=== PATIENT | male | born 1970 | race Hispanic/Latino ===

== ENCOUNTER 2021-05-16 11:31 | Inpatient (IN) | payer SELFPAY ==
[~2021-05-16 11:31] MED LIST: Iopamidol-370 76% 500 ML 1 ML ONE
[2021-05-16] MEDS ORDERED: Acetaminophen 500 MG TAB ONE (12:03)
[2021-05-16 12:19] LABS: Hemoglobin 15.2 g/dL (14.0-18.0); Mean Corpuscular HGB CONC 33.4 g/dL (32.0-36.0); Mean Corpuscular Hemoglobin 29.6 pg (27.0-31.0); Mean Corpuscular Volume 88.5 fL (78.0-98.0); Platelet Count 123 thou/uL (130-400); RBC Distribution Width 12.6 % (11.5-14.5); Red Blood Cell (RBC) Count 5.12 mill/uL (4.70-6.10); White Blood Cell (WBC) Count 13.2 thou/uL (4.8-10.8)
[2021-05-16] MEDS ORDERED: cefTRIAXone\\ROCEPHIN 1 GM VIAL ONE (12:43)
[2021-05-16 13:01] LABS: #Lymphocytes 1.3 thou/uL (1.20-3.40); #Monocytes 0.4 thou/uL (0.11-0.59); #Neutrophils 11.4 thou/uL (1.40-6.50); %Basophils 0.3 % (0.0-1.0); %Eosinophils 0.3 % (0.0-10.0); %Lymphocytes 9.9 % (21.0-51.0); %Monocytes 3.2 % (0.0-10.0); %Neutrophils 86.3 % (42.0-75.0); MDiff Complete? YES; Platelet Morphology Comment Appears Decreased; Polychromasia SLIGHT = 2-3 cells (100X) (0-2/hpf)
[2021-05-16] MEDS ORDERED: Azithromycin 500 MG VIAL ONE (13:22)
[2021-05-16 14:00] LABS: SARS-CoV-2 NAA Rapid Test DETECTED (NotDetected)
[2021-05-16] MEDS ORDERED: Dexamethasone 4 mg/ml Vial ONE (15:07)
[2021-05-16 15:38] LABS: ALT (SGPT) 115 U/L (8-55); AST (SGOT) 53 U/L (5-34); Alkaline Phosphatase 114 U/L (40-110); Anion Gap 15 mmol/L (10-20); BUN (Urea Nitrogen) 11 mg/dL (8.9-20.6); Bilirubin, Total 0.6 mg/dL (0.2-1.2); Calc. Creatinine Clearance 0 mL/min (70-130); Calcium 7.8 mg/dL (7.8-10.44); Carbon Dioxide 20 mmol/L (22-29); Chloride 105 mmol/L (98-107); Globulin 3.4 g/dL (2.4-3.5); Glucose 116 mg/dL (70-105); Potassium 3.6 mmol/L (3.5-5.1); Protein, Total 6.4 g/dL (6.0-8.3); Sodium 136 mmol/L (136-145)
[2021-05-16 15:42] LABS: Troponin I 0.033 ng/mL (< 0.028)
[2021-05-16] MEDS ORDERED: Ondansetron ODT 4 MG TAB PO PRN (15:53)
[2021-05-16] MEDS ORDERED: Ondansetron PF 4 MG/2 ML Vial IVP PRN (15:53)
[2021-05-16] MEDS ORDERED: Acetaminophen 325 MG TAB PO PRN (15:53)
[2021-05-16] MEDS ORDERED: Ivermectin 3 MG TAB PO SCH (16:00)
[2021-05-16] MEDS ORDERED: Enoxaparin Sodium 40 MG/0.4 ML SYRINGE SC SCH (16:00)
[2021-05-16] MEDS ORDERED: Pantoprazole 40 MG VIAL IVP SCH (16:00)
[2021-05-16] MEDS ORDERED: Bacteriostatic Water 30 ML VIAL FS PRN (16:45)
[2021-05-16] MEDS ORDERED: Enoxaparin Sodium 40 MG/0.4 ML SYRINGE ONE (18:16)
[2021-05-16] MEDS ORDERED: Pantoprazole 40 MG VIAL ONE (18:17)
[2021-05-16 18:27] LABS: Troponin I 0.038 ng/mL (< 0.028)
[2021-05-16] MEDS ORDERED: methylPREDNISolone Sod Succ 40 MG VIAL IVP SCH (21:00)
[2021-05-16] MEDS: Melatonin 3 MG TAB PO SCH (21:11)
[2021-05-16] MEDS: Colchicine 0.6 MG TAB PO SCH (21:11)
[2021-05-16] MEDS: methylPREDNISolone Sod Succ 40 MG VIAL IVP SCH (21:11)
[2021-05-17 06:31] LABS: Hemoglobin 14.2 g/dL (14.0-18.0); Mean Corpuscular HGB CONC 32.9 g/dL (32.0-36.0); Mean Corpuscular Hemoglobin 29.4 pg (27.0-31.0); Mean Corpuscular Volume 89.6 fL (78.0-98.0); Mean Platelet Volume 8.6 fL (7.4-10.4); Platelet Count 262 thou/uL (130-400); RBC Distribution Width 12.5 % (11.5-14.5); Red Blood Cell (RBC) Count 4.83 mill/uL (4.70-6.10); White Blood Cell (WBC) Count 16.9 thou/uL (4.8-10.8)
[2021-05-17 06:44] LABS: ALT (SGPT) 91 U/L (8-55); AST (SGOT) 33 U/L (5-34); Albumin 3.2 g/dL (3.5-5.0); Alkaline Phosphatase 116 U/L (40-110); Anion Gap 13 mmol/L (10-20); BUN (Urea Nitrogen) 13 mg/dL (8.9-20.6); Bilirubin, Total 0.5 mg/dL (0.2-1.2); Calc. Creatinine Clearance 130 mL/min (70-130); Calcium 8.5 mg/dL (7.8-10.44); Carbon Dioxide 26 mmol/L (22-29); Chloride 103 mmol/L (98-107); Globulin 3.7 g/dL (2.4-3.5); Glucose 171 mg/dL (70-105); Potassium 4.1 mmol/L (3.5-5.1); Protein, Total 6.9 g/dL (6.0-8.3); Sodium 138 mmol/L (136-145)
[2021-05-17 06:45] LABS: #Lymphocytes 0.9 thou/uL (1.20-3.40); #Monocytes 0.4 thou/uL (0.11-0.59); #Neutrophils 15.5 thou/uL (1.40-6.50); %Basophils 0.1 % (0.0-1.0); %Eosinophils 0.1 % (0.0-10.0); %Lymphocytes 5.1 % (21.0-51.0); %Monocytes 2.6 % (0.0-10.0); %Neutrophils 92.1 % (42.0-75.0); Platelet Morphology Comment Appears Adequate; RBC Morphology Normal
[2021-05-17 07:03] LABS: Hep B Surf Ag Non-Reactive S/CO (NonReactive); Hep C IgG Ab Non-Reactive (NonReactive); Hep C Index 0.08 S/CO (0-0.79)
[2021-05-17] MEDS: Ascorbic Acid 500 mg Chewable Tablet PO SCH (07:51)
[2021-05-17] MEDS: Ivermectin 3 MG TAB PO SCH (07:51)
[2021-05-17] MEDS: Cholecalciferol 1,000 UNITS (25 MCG) TAB PO SCH (07:52)
[2021-05-17] MEDS: Zinc Sulfate 220 MG CAP PO SCH (07:53)
[2021-05-17] MEDS: Colchicine 0.6 MG TAB PO SCH ×2 (07:53→21:21)
[2021-05-17] MEDS: methylPREDNISolone Sod Succ 40 MG VIAL IVP SCH (07:54)
[2021-05-17] MEDS ORDERED: Enoxaparin Sodium 40 MG/0.4 ML SYRINGE SC SCH (09:00)
[2021-05-17] MEDS ORDERED: REMDESIVIR 200 MG in Sodium Chloride 0.9% 250 ML 210 ML IV SCH (09:30)
[2021-05-17] MEDS: Dexamethasone 10 MG in Sodium Chloride 0.9% 50 ML IVPB SCH ×2 (10:44→21:22)
[2021-05-17] MEDS: Famotidine/PF 20 mg/2ml Vial SLOW IVP SCH ×2 (10:45→21:21)
[2021-05-17 13:40] LABS: Hep A IgM AB Non-Reactive (NonReactive)
[2021-05-17 13:41] LABS: Hepatitis B Core IgM Abs Non-Reactive (NonReactive)
[2021-05-17 13:43] LABS: HBCM Index 0.07 S/CO (0-0.79); Hep A IgM S/CO 0.33 S/CO (0-0.79)
[2021-05-17] MEDS: cefTRIAXone\\ROCEPHIN 1 GM in Sodium Chloride 0.9% 100 ML IVPB SCH (13:47)
[2021-05-17] MEDS: Azithromycin 500 MG in Sodium Chloride 0.9% 250 ML 250 ML IVPB SCH (15:11)
[2021-05-17] MEDS: Enoxaparin Sodium 40 MG/0.4 ML SYRINGE SC SCH (21:21)
[2021-05-17] MEDS: Melatonin 3 MG TAB PO SCH (21:22)
[2021-05-17] MEDS: Mometasone 200 MCG/Formoterol 5 MCG 120 PUFF INHALER INH SCH (21:22)
[2021-05-18 06:59] LABS: #Lymphocytes 0.8 thou/uL (1.20-3.40); #Monocytes 0.4 thou/uL (0.11-0.59); %Eosinophils 0.1 % (0.0-10.0); %Lymphocytes 5.1 % (21.0-51.0); %Monocytes 2.7 % (0.0-10.0); %Neutrophils 92.1 % (42.0-75.0); Hemoglobin 13.8 g/dL (14.0-18.0); Mean Corpuscular Hemoglobin 28.9 pg (27.0-31.0); Mean Corpuscular Volume 90.3 fL (78.0-98.0); Mean Platelet Volume 8.8 fL (7.4-10.4); Platelet Count 308 thou/uL (130-400); RBC Distribution Width 12.4 % (11.5-14.5); Red Blood Cell (RBC) Count 4.75 mill/uL (4.70-6.10); White Blood Cell (WBC) Count 15.2 thou/uL (4.8-10.8)
[2021-05-18] MEDS: Ascorbic Acid 500 mg Chewable Tablet PO SCH (08:53)
[2021-05-18] MEDS: Enoxaparin Sodium 40 MG/0.4 ML SYRINGE SC SCH ×2 (08:53→20:20)
[2021-05-18] MEDS: Ivermectin 3 MG TAB PO SCH (08:53)
[2021-05-18] MEDS: Famotidine/PF 20 mg/2ml Vial SLOW IVP SCH ×2 (08:53→20:20)
[2021-05-18] MEDS: Dexamethasone 10 MG in Sodium Chloride 0.9% 50 ML IVPB SCH ×2 (08:53→20:19)
[2021-05-18] MEDS: Zinc Sulfate 220 MG CAP PO SCH (08:53)
[2021-05-18] MEDS: Cholecalciferol 1,000 UNITS (25 MCG) TAB PO SCH (08:54)
[2021-05-18] MEDS: Mometasone 200 MCG/Formoterol 5 MCG 120 PUFF INHALER INH SCH ×2 (08:54→18:42)
[2021-05-18] MEDS: Colchicine 0.6 MG TAB PO SCH ×2 (08:54→20:20)
[2021-05-18] MEDS: REMDESIVIR 100 MG in Sodium Chloride 0.9% 250 ML 230 ML IV SCH (12:30)
[2021-05-18] MEDS: cefTRIAXone\\ROCEPHIN 1 GM in Sodium Chloride 0.9% 100 ML IVPB SCH (13:15)
[2021-05-18] MEDS: Azithromycin 500 MG in Sodium Chloride 0.9% 250 ML 250 ML IVPB SCH (15:34)
[2021-05-18] MEDS: Melatonin 3 MG TAB PO SCH (20:19)
[2021-05-18] MEDS: Benzonatate 100 MG CAP PO PRN (20:20)
[2021-05-19 05:16] LABS: #Lymphocytes 0.9 thou/uL (1.20-3.40); #Monocytes 0.6 thou/uL (0.11-0.59); #Neutrophils 14.6 thou/uL (1.40-6.50); %Eosinophils 0.1 % (0.0-10.0); %Lymphocytes 5.5 % (21.0-51.0); %Monocytes 3.8 % (0.0-10.0); %Neutrophils 90.6 % (42.0-75.0); Hemoglobin 14.4 g/dL (14.0-18.0); Mean Corpuscular HGB CONC 32.5 g/dL (32.0-36.0); Mean Corpuscular Hemoglobin 29.1 pg (27.0-31.0); Mean Corpuscular Volume 89.4 fL (78.0-98.0); Mean Platelet Volume 8.3 fL (7.4-10.4); Platelet Count 339 thou/uL (130-400); RBC Distribution Width 12.5 % (11.5-14.5); RBC Morphology Normal; Red Blood Cell (RBC) Count 4.97 mill/uL (4.70-6.10); White Blood Cell (WBC) Count 16.1 thou/uL (4.8-10.8)
[2021-05-19] MEDS: Enoxaparin Sodium 40 MG/0.4 ML SYRINGE SC SCH ×2 (09:23→21:16)
[2021-05-19] MEDS: Colchicine 0.6 MG TAB PO SCH ×2 (09:24→21:18)
[2021-05-19] MEDS: Cholecalciferol 1,000 UNITS (25 MCG) TAB PO SCH (09:24)
[2021-05-19] MEDS: Ascorbic Acid 500 mg Chewable Tablet PO SCH (09:24)
[2021-05-19] MEDS: Ivermectin 3 MG TAB PO SCH (09:24)
[2021-05-19] MEDS: Zinc Sulfate 220 MG CAP PO SCH (09:24)
[2021-05-19] MEDS: Dexamethasone 10 MG in Sodium Chloride 0.9% 50 ML IVPB SCH ×2 (09:25→21:18)
[2021-05-19] MEDS: Famotidine/PF 20 mg/2ml Vial SLOW IVP SCH (09:25)
[2021-05-19] MEDS: REMDESIVIR 100 MG in Sodium Chloride 0.9% 250 ML 230 ML IV SCH (12:18)
[2021-05-19] MEDS: cefTRIAXone\\ROCEPHIN 1 GM in Sodium Chloride 0.9% 100 ML IVPB SCH (13:42)
[2021-05-19] MEDS: Mometasone 200 MCG/Formoterol 5 MCG 120 PUFF INHALER INH SCH ×2 (13:43→18:12)
[2021-05-19] MEDS: Benzonatate 100 MG CAP PO PRN ×2 (18:12→21:16)
[2021-05-19] MEDS: Melatonin 3 MG TAB PO SCH (21:17)
[2021-05-20 04:06] LABS: #Lymphocytes 0.9 thou/uL (1.20-3.40); #Monocytes 0.5 thou/uL (0.11-0.59); #Neutrophils 12.9 thou/uL (1.40-6.50); %Basophils 0.1 % (0.0-1.0); %Eosinophils 0.1 % (0.0-10.0); %Lymphocytes 6.4 % (21.0-51.0); %Monocytes 3.3 % (0.0-10.0); Hemoglobin 14.9 g/dL (14.0-18.0); Mean Corpuscular HGB CONC 32.3 g/dL (32.0-36.0); Mean Corpuscular Hemoglobin 28.7 pg (27.0-31.0); Mean Corpuscular Volume 88.8 fL (78.0-98.0); Mean Platelet Volume 8.1 fL (7.4-10.4); Platelet Count 365 thou/uL (130-400); RBC Distribution Width 12.5 % (11.5-14.5); Red Blood Cell (RBC) Count 5.18 mill/uL (4.70-6.10); White Blood Cell (WBC) Count 14.4 thou/uL (4.8-10.8)
[2021-05-20] MEDS: Ascorbic Acid 500 mg Chewable Tablet PO SCH (08:45)
[2021-05-20] MEDS: Colchicine 0.6 MG TAB PO SCH ×2 (08:45→21:35)
[2021-05-20] MEDS: Dexamethasone 10 MG in Sodium Chloride 0.9% 50 ML IVPB SCH ×2 (08:45→21:33)
[2021-05-20] MEDS: Enoxaparin Sodium 40 MG/0.4 ML SYRINGE SC SCH ×2 (08:45→21:35)
[2021-05-20] MEDS: Zinc Sulfate 220 MG CAP PO SCH (08:46)
[2021-05-20] MEDS: Cholecalciferol 1,000 UNITS (25 MCG) TAB PO SCH (08:46)
[2021-05-20] MEDS: Mometasone 200 MCG/Formoterol 5 MCG 120 PUFF INHALER INH SCH ×2 (08:46→18:13)
[2021-05-20] MEDS: Benzonatate 100 MG CAP PO PRN (10:53)
[2021-05-20] MEDS: REMDESIVIR 100 MG in Sodium Chloride 0.9% 250 ML 230 ML IV SCH (12:35)
[2021-05-20] MEDS: cefTRIAXone\\ROCEPHIN 1 GM in Sodium Chloride 0.9% 100 ML IVPB SCH (14:03)
[2021-05-20] MEDS: Melatonin 3 MG TAB PO SCH (21:35)
[2021-05-21] MEDS: Benzonatate 100 MG CAP PO PRN ×2 (01:13→20:31)
[2021-05-21 03:39] LABS: #Lymphocytes 1.1 thou/uL (1.20-3.40); #Monocytes 0.4 thou/uL (0.11-0.59); #Neutrophils 15.9 thou/uL (1.40-6.50); %Basophils 0.3 % (0.0-1.0); %Eosinophils 0.2 % (0.0-10.0); %Lymphocytes 6.3 % (21.0-51.0); %Monocytes 2.3 % (0.0-10.0); Hemoglobin 16.9 g/dL (14.0-18.0); Mean Corpuscular HGB CONC 34.4 g/dL (32.0-36.0); Mean Corpuscular Hemoglobin 30.4 pg (27.0-31.0); Mean Corpuscular Volume 88.4 fL (78.0-98.0); Platelet Count 439 thou/uL (130-400); RBC Distribution Width 12.5 % (11.5-14.5); Red Blood Cell (RBC) Count 5.57 mill/uL (4.70-6.10); White Blood Cell (WBC) Count 17.5 thou/uL (4.8-10.8)
[2021-05-21 04:05] LABS: Anion Gap 14 mmol/L (10-20); BUN (Urea Nitrogen) 21 mg/dL (8.9-20.6); Calc. Creatinine Clearance 115 mL/min (70-130); Calcium 8.4 mg/dL (7.8-10.44); Carbon Dioxide 21 mmol/L (22-29); Chloride 102 mmol/L (98-107); Glucose 198 mg/dL (70-105); Potassium 4.5 mmol/L (3.5-5.1); Sodium 132 mmol/L (136-145)
[2021-05-21] MEDS: Mometasone 200 MCG/Formoterol 5 MCG 120 PUFF INHALER INH SCH ×2 (06:32→18:12)
[2021-05-21] MEDS: Enoxaparin Sodium 40 MG/0.4 ML SYRINGE SC SCH ×2 (09:21→20:30)
[2021-05-21] MEDS: Dexamethasone 10 MG in Sodium Chloride 0.9% 50 ML IVPB SCH ×2 (09:22→20:29)
[2021-05-21] MEDS: Colchicine 0.6 MG TAB PO SCH ×2 (09:23→20:28)
[2021-05-21] MEDS: Ascorbic Acid 500 mg Chewable Tablet PO SCH (09:23)
[2021-05-21] MEDS: Zinc Sulfate 220 MG CAP PO SCH (09:23)
[2021-05-21] MEDS: Cholecalciferol 1,000 UNITS (25 MCG) TAB PO SCH (09:23)
[2021-05-21] MEDS ORDERED: Dextrose 5% in Water 1,000 ML IV PRN (09:57)
[2021-05-21] MEDS ORDERED: Dextrose 50% Abboject 50 ML SYRINGE SLOW IVP PRN (09:57)
[2021-05-21] MEDS: REMDESIVIR 100 MG in Sodium Chloride 0.9% 250 ML 230 ML IV SCH (13:22)
[2021-05-21] MEDS: cefTRIAXone\\ROCEPHIN 1 GM in Sodium Chloride 0.9% 100 ML IVPB SCH (14:13)
[2021-05-21] MEDS: Melatonin 3 MG TAB PO SCH (20:28)
[2021-05-22 04:50] LABS: D-Dimer Test 1.33 *mcg/mL (0.27-0.43)
[2021-05-22] MEDS: Mometasone 200 MCG/Formoterol 5 MCG 120 PUFF INHALER INH SCH ×2 (06:31→21:32)
[2021-05-22] MEDS: Ascorbic Acid 500 mg Chewable Tablet PO SCH (07:19)
[2021-05-22] MEDS: Cholecalciferol 1,000 UNITS (25 MCG) TAB PO SCH (07:19)
[2021-05-22] MEDS: Enoxaparin Sodium 40 MG/0.4 ML SYRINGE SC SCH ×2 (07:20→21:32)
[2021-05-22] MEDS: Colchicine 0.6 MG TAB PO SCH ×2 (07:20→21:32)
[2021-05-22] MEDS: Zinc Sulfate 220 MG CAP PO SCH (07:20)
[2021-05-22] MEDS: Dexamethasone 10 MG in Sodium Chloride 0.9% 50 ML IVPB SCH ×2 (07:26→21:33)
[2021-05-22] MEDS: cefTRIAXone\\ROCEPHIN 1 GM in Sodium Chloride 0.9% 100 ML IVPB SCH (14:51)
[2021-05-22] MEDS: Benzonatate 100 MG CAP PO PRN (21:33)
[2021-05-22] MEDS: Melatonin 3 MG TAB PO SCH (21:33)
[2021-05-23 08:17] LABS: Anion Gap 15 mmol/L (10-20); BUN (Urea Nitrogen) 27 mg/dL (8.9-20.6); Calc. Creatinine Clearance 110 mL/min (70-130); Calcium 8.4 mg/dL (7.8-10.44); Carbon Dioxide 19 mmol/L (22-29); Chloride 104 mmol/L (98-107); Glucose 171 mg/dL (70-105); Potassium 4.4 mmol/L (3.5-5.1); Sodium 134 mmol/L (136-145)
[2021-05-23] MEDS: Ascorbic Acid 500 mg Chewable Tablet PO SCH (09:25)
[2021-05-23] MEDS: Cholecalciferol 1,000 UNITS (25 MCG) TAB PO SCH (09:25)
[2021-05-23] MEDS: Colchicine 0.6 MG TAB PO SCH ×2 (09:25→20:39)
[2021-05-23] MEDS: Zinc Sulfate 220 MG CAP PO SCH (09:25)
[2021-05-23] MEDS: Dexamethasone 10 MG in Sodium Chloride 0.9% 50 ML IVPB SCH ×2 (09:26→20:40)
[2021-05-23] MEDS: Enoxaparin Sodium 40 MG/0.4 ML SYRINGE SC SCH ×2 (09:26→20:39)
[2021-05-23] MEDS: Mometasone 200 MCG/Formoterol 5 MCG 120 PUFF INHALER INH SCH ×2 (10:58→19:55)
[2021-05-23] MEDS: cefTRIAXone\\ROCEPHIN 1 GM in Sodium Chloride 0.9% 100 ML IVPB SCH (14:15)
[2021-05-23] MEDS: Melatonin 3 MG TAB PO SCH (20:39)
[2021-05-23] MEDS: Benzonatate 100 MG CAP PO PRN (20:39)
[2021-05-23] MEDS: Guaifenesin DM 100-10/5 ML UDCUP PO PRN (23:15)
[2021-05-24] MEDS: HumaLOG 300 UNITS/3 ML VIAL SC PRN (05:09)
[2021-05-24] MEDS: Cholecalciferol 1,000 UNITS (25 MCG) TAB PO SCH (09:18)
[2021-05-24] MEDS: Enoxaparin Sodium 40 MG/0.4 ML SYRINGE SC SCH ×2 (09:19→21:42)
[2021-05-24] MEDS: Ascorbic Acid 500 mg Chewable Tablet PO SCH (09:19)
[2021-05-24] MEDS: Zinc Sulfate 220 MG CAP PO SCH (09:19)
[2021-05-24] MEDS: Dexamethasone 10 MG in Sodium Chloride 0.9% 50 ML IVPB SCH ×2 (09:19→21:42)
[2021-05-24] MEDS: Colchicine 0.6 MG TAB PO SCH ×2 (09:20→21:42)
[2021-05-24] MEDS: cefTRIAXone\\ROCEPHIN 1 GM in Sodium Chloride 0.9% 100 ML IVPB SCH (14:33)
[2021-05-24] MEDS: Mometasone 200 MCG/Formoterol 5 MCG 120 PUFF INHALER INH SCH ×2 (18:00→21:42)
[2021-05-24] MEDS: Benzonatate 100 MG CAP PO PRN (21:42)
[2021-05-24] MEDS: Melatonin 3 MG TAB PO SCH (21:42)
[2021-05-25 04:00] LABS: #Basophils 0.2 thou/uL (0.0-0.2); #Lymphocytes 0.5 thou/uL (1.20-3.40); #Monocytes 0.3 thou/uL (0.11-0.59); #Neutrophils 10.9 thou/uL (1.40-6.50); %Basophils 1.9 % (0.0-1.0); %Eosinophils 0.1 % (0.0-10.0); %Lymphocytes 4.5 % (21.0-51.0); %Monocytes 2.6 % (0.0-10.0); %Neutrophils 90.8 % (42.0-75.0); Hemoglobin 17.2 g/dL (14.0-18.0); Mean Corpuscular HGB CONC 32.5 g/dL (32.0-36.0); Mean Corpuscular Hemoglobin 28.9 pg (27.0-31.0); Mean Corpuscular Volume 88.9 fL (78.0-98.0); Mean Platelet Volume 8.4 fL (7.4-10.4); Platelet Count 300 thou/uL (130-400); RBC Distribution Width 13.4 % (11.5-14.5); Red Blood Cell (RBC) Count 5.94 mill/uL (4.70-6.10)
[2021-05-25 04:26] LABS: ALT (SGPT) 168 U/L (8-55); AST (SGOT) 34 U/L (5-34); Albumin 3.4 g/dL (3.5-5.0); Alkaline Phosphatase 84 U/L (40-110); Anion Gap 13 mmol/L (10-20); BUN (Urea Nitrogen) 22 mg/dL (8.9-20.6); Bilirubin, Total 1.3 mg/dL (0.2-1.2); CRP (Inflammatory) Less than 0.50 mg/dL (= or < 0.5); Calc. Creatinine Clearance 121 mL/min (70-130); Calcium 8.4 mg/dL (7.8-10.44); Carbon Dioxide 20 mmol/L (22-29); Chloride 103 mmol/L (98-107); Globulin 2.7 g/dL (2.4-3.5); Glucose 160 mg/dL (70-105); Potassium 4.6 mmol/L (3.5-5.1); Protein, Total 6.1 g/dL (6.0-8.3); Sodium 131 mmol/L (136-145)
[2021-05-25] MEDS: HumaLOG 300 UNITS/3 ML VIAL SC PRN (05:23)
[2021-05-25] MEDS: Ascorbic Acid 500 mg Chewable Tablet PO SCH (09:07)
[2021-05-25] MEDS: Zinc Sulfate 220 MG CAP PO SCH (09:07)
[2021-05-25] MEDS: Colchicine 0.6 MG TAB PO SCH ×3 (09:08→21:44)
[2021-05-25] MEDS: Cholecalciferol 1,000 UNITS (25 MCG) TAB PO SCH (09:08)
[2021-05-25] MEDS: Enoxaparin Sodium 40 MG/0.4 ML SYRINGE SC SCH ×2 (09:08→21:45)
[2021-05-25] MEDS: Dexamethasone 10 MG in Sodium Chloride 0.9% 50 ML IVPB SCH ×2 (09:09→21:45)
[2021-05-25] MEDS: Mometasone 200 MCG/Formoterol 5 MCG 120 PUFF INHALER INH SCH ×2 (09:10→21:46)
[2021-05-25 12:19] LABS: Hemoglobin A1c 7.3 % (4.0-6.0)
[2021-05-25] MEDS: Melatonin 3 MG TAB PO SCH (21:45)
[2021-05-26] MEDS: HumaLOG 300 UNITS/3 ML VIAL SC PRN ×2 (05:37→11:45)
[2021-05-26] MEDS: Mometasone 200 MCG/Formoterol 5 MCG 120 PUFF INHALER INH SCH ×2 (06:44→17:50)
[2021-05-26] MEDS: Dexamethasone 10 MG in Sodium Chloride 0.9% 50 ML IVPB SCH ×2 (09:30→20:36)
[2021-05-26] MEDS: Zinc Sulfate 220 MG CAP PO SCH (09:30)
[2021-05-26] MEDS: Enoxaparin Sodium 40 MG/0.4 ML SYRINGE SC SCH ×2 (09:30→20:37)
[2021-05-26] MEDS: Ascorbic Acid 500 mg Chewable Tablet PO SCH (09:30)
[2021-05-26] MEDS: Colchicine 0.6 MG TAB PO SCH ×2 (09:30→20:37)
[2021-05-26] MEDS: Cholecalciferol 1,000 UNITS (25 MCG) TAB PO SCH (09:31)
[2021-05-26] MEDS: Melatonin 3 MG TAB PO SCH (20:37)
[2021-05-27] MEDS: HumaLOG 300 UNITS/3 ML VIAL SC PRN ×3 (06:16→16:55)
[2021-05-27] MEDS: Mometasone 200 MCG/Formoterol 5 MCG 120 PUFF INHALER INH SCH ×2 (06:17→18:34)
[2021-05-27] MEDS: Ascorbic Acid 500 mg Chewable Tablet PO SCH (08:20)
[2021-05-27] MEDS: Zinc Sulfate 220 MG CAP PO SCH (08:20)
[2021-05-27] MEDS: Colchicine 0.6 MG TAB PO SCH ×2 (08:20→21:25)
[2021-05-27] MEDS: Dexamethasone 10 MG in Sodium Chloride 0.9% 50 ML IVPB SCH ×2 (08:21→21:24)
[2021-05-27] MEDS: Enoxaparin Sodium 40 MG/0.4 ML SYRINGE SC SCH ×2 (08:21→21:24)
[2021-05-27] MEDS: Cholecalciferol 1,000 UNITS (25 MCG) TAB PO SCH (08:24)
[2021-05-27] MEDS: Guaifenesin DM 100-10/5 ML UDCUP PO PRN (11:38)
[2021-05-27] MEDS: Benzonatate 100 MG CAP PO PRN ×2 (11:38→21:25)
[2021-05-27] MEDS: Melatonin 3 MG TAB PO SCH (21:25)
[2021-05-27] MEDS: Lantus 1000 UNITS/10 ML VIAL SC SCH (21:26)
[2021-05-28] MEDS: Mometasone 200 MCG/Formoterol 5 MCG 120 PUFF INHALER INH SCH ×2 (06:30→21:23)
[2021-05-28] MEDS: Enoxaparin Sodium 40 MG/0.4 ML SYRINGE SC SCH ×2 (08:37→21:17)
[2021-05-28] MEDS: Dexamethasone 10 MG in Sodium Chloride 0.9% 50 ML IVPB SCH ×2 (08:37→21:25)
[2021-05-28] MEDS: Ascorbic Acid 500 mg Chewable Tablet PO SCH (08:38)
[2021-05-28] MEDS: Zinc Sulfate 220 MG CAP PO SCH (08:39)
[2021-05-28] MEDS: Cholecalciferol 1,000 UNITS (25 MCG) TAB PO SCH (08:39)
[2021-05-28] MEDS: Colchicine 0.6 MG TAB PO SCH ×2 (08:39→21:17)
[2021-05-28 09:52] LABS: #Basophils 0.1 thou/uL (0.0-0.2); #Lymphocytes 0.8 thou/uL (1.20-3.40); #Monocytes 0.8 thou/uL (0.11-0.59); #Neutrophils 10.9 thou/uL (1.40-6.50); %Basophils 1.1 % (0.0-1.0); %Eosinophils 0.1 % (0.0-10.0); %Lymphocytes 6.4 % (21.0-51.0); %Monocytes 6.4 % (0.0-10.0); Hemoglobin 17.5 g/dL (14.0-18.0); Mean Corpuscular HGB CONC 34.7 g/dL (32.0-36.0); Mean Corpuscular Hemoglobin 30.6 pg (27.0-31.0); Mean Corpuscular Volume 88.1 fL (78.0-98.0); Mean Platelet Volume 9.1 fL (7.4-10.4); Platelet Count 250 thou/uL (130-400); RBC Distribution Width 13.6 % (11.5-14.5); Red Blood Cell (RBC) Count 5.73 mill/uL (4.70-6.10); White Blood Cell (WBC) Count 12.7 thou/uL (4.8-10.8)
[2021-05-28 10:12] LABS: Anion Gap 12 mmol/L (10-20); BUN (Urea Nitrogen) 23 mg/dL (8.9-20.6); Calc. Creatinine Clearance 126 mL/min (70-130); Calcium 8.3 mg/dL (7.8-10.44); Carbon Dioxide 22 mmol/L (22-29); Chloride 103 mmol/L (98-107); Glucose 134 mg/dL (70-105); Potassium 4.2 mmol/L (3.5-5.1); Sodium 133 mmol/L (136-145)
[2021-05-28] MEDS: HumaLOG 300 UNITS/3 ML VIAL SC PRN ×2 (11:11→17:01)
[2021-05-28] MEDS: Melatonin 3 MG TAB PO SCH (21:17)
[2021-05-28] MEDS: Lantus 1000 UNITS/10 ML VIAL SC SCH (21:18)
[2021-05-29] MEDS: HumaLOG 300 UNITS/3 ML VIAL SC PRN ×3 (06:52→17:03)
[2021-05-29] MEDS: Mometasone 200 MCG/Formoterol 5 MCG 120 PUFF INHALER INH SCH ×2 (06:52→20:16)
[2021-05-29] MEDS: Ascorbic Acid 500 mg Chewable Tablet PO SCH (08:03)
[2021-05-29] MEDS: Cholecalciferol 1,000 UNITS (25 MCG) TAB PO SCH (08:03)
[2021-05-29] MEDS: Colchicine 0.6 MG TAB PO SCH ×2 (08:04→20:14)
[2021-05-29] MEDS: Enoxaparin Sodium 40 MG/0.4 ML SYRINGE SC SCH ×2 (08:04→20:13)
[2021-05-29] MEDS: Zinc Sulfate 220 MG CAP PO SCH (08:04)
[2021-05-29] MEDS: Dexamethasone 10 MG in Sodium Chloride 0.9% 50 ML IVPB SCH ×2 (08:04→20:14)
[2021-05-29] MEDS: Lantus 1000 UNITS/10 ML VIAL SC SCH (20:14)
[2021-05-29] MEDS: Melatonin 3 MG TAB PO SCH (20:14)
[2021-05-30] MEDS: HumaLOG 300 UNITS/3 ML VIAL SC PRN ×3 (06:49→17:57)
[2021-05-30] MEDS: Zinc Sulfate 220 MG CAP PO SCH (07:59)
[2021-05-30] MEDS: Enoxaparin Sodium 40 MG/0.4 ML SYRINGE SC SCH ×2 (07:59→21:09)
[2021-05-30] MEDS: Ascorbic Acid 500 mg Chewable Tablet PO SCH (07:59)
[2021-05-30] MEDS: Colchicine 0.6 MG TAB PO SCH ×2 (07:59→21:08)
[2021-05-30] MEDS: Dexamethasone 10 MG in Sodium Chloride 0.9% 50 ML IVPB SCH ×2 (07:59→21:09)
[2021-05-30] MEDS: Cholecalciferol 1,000 UNITS (25 MCG) TAB PO SCH (08:00)
[2021-05-30] MEDS: Mometasone 200 MCG/Formoterol 5 MCG 120 PUFF INHALER INH SCH ×2 (08:38→18:45)
[2021-05-30 08:54] LABS: #Monocytes 0.9 thou/uL (0.11-0.59); #Neutrophils 11.3 thou/uL (1.40-6.50); %Basophils 0.1 % (0.0-1.0); %Lymphocytes 7.3 % (21.0-51.0); %Monocytes 6.5 % (0.0-10.0); Hemoglobin 16.6 g/dL (14.0-18.0); Mean Corpuscular HGB CONC 33.2 g/dL (32.0-36.0); Mean Corpuscular Hemoglobin 29.2 pg (27.0-31.0); Mean Corpuscular Volume 88.1 fL (78.0-98.0); Mean Platelet Volume 9.2 fL (7.4-10.4); Platelet Count 203 thou/uL (130-400); RBC Distribution Width 13.4 % (11.5-14.5); Red Blood Cell (RBC) Count 5.67 mill/uL (4.70-6.10); White Blood Cell (WBC) Count 13.2 thou/uL (4.8-10.8)
[2021-05-30] MEDS: Melatonin 3 MG TAB PO SCH (21:09)
[2021-05-30] MEDS: Lantus 1000 UNITS/10 ML VIAL SC SCH (21:10)
[2021-05-31 03:43] LABS: #Lymphocytes 0.5 thou/uL (1.20-3.40); #Monocytes 0.3 thou/uL (0.11-0.59); #Neutrophils 11.6 thou/uL (1.40-6.50); %Basophils 0.1 % (0.0-1.0); %Eosinophils 0.2 % (0.0-10.0); %Lymphocytes 4.3 % (21.0-51.0); %Monocytes 2.7 % (0.0-10.0); %Neutrophils 92.7 % (42.0-75.0); Hemoglobin 15.4 g/dL (14.0-18.0); Mean Corpuscular HGB CONC 32.9 g/dL (32.0-36.0); Mean Corpuscular Hemoglobin 29.3 pg (27.0-31.0); Mean Corpuscular Volume 88.9 fL (78.0-98.0); Mean Platelet Volume 9.6 fL (7.4-10.4); Platelet Count 166 thou/uL (130-400); RBC Distribution Width 13.4 % (11.5-14.5); Red Blood Cell (RBC) Count 5.25 mill/uL (4.70-6.10); White Blood Cell (WBC) Count 12.5 thou/uL (4.8-10.8)
[2021-05-31 03:57] LABS: Anion Gap 10 mmol/L (10-20); BUN (Urea Nitrogen) 19 mg/dL (8.9-20.6); Calc. Creatinine Clearance 131 mL/min (70-130); Calcium 8.1 mg/dL (7.8-10.44); Carbon Dioxide 23 mmol/L (22-29); Chloride 103 mmol/L (98-107); Glucose 150 mg/dL (70-105); Potassium 4.2 mmol/L (3.5-5.1); Sodium 132 mmol/L (136-145)
[2021-05-31] MEDS: HumaLOG 300 UNITS/3 ML VIAL SC PRN (06:43)
[2021-05-31] MEDS: Mometasone 200 MCG/Formoterol 5 MCG 120 PUFF INHALER INH SCH ×2 (08:28→18:51)
[2021-05-31] MEDS: Colchicine 0.6 MG TAB PO SCH ×2 (09:22→20:20)
[2021-05-31] MEDS: Zinc Sulfate 220 MG CAP PO SCH (09:22)
[2021-05-31] MEDS: Enoxaparin Sodium 40 MG/0.4 ML SYRINGE SC SCH ×2 (09:22→20:20)
[2021-05-31] MEDS: Dexamethasone 10 MG in Sodium Chloride 0.9% 50 ML IVPB SCH ×2 (09:22→20:20)
[2021-05-31] MEDS: Ascorbic Acid 500 mg Chewable Tablet PO SCH (09:22)
[2021-05-31] MEDS: Cholecalciferol 1,000 UNITS (25 MCG) TAB PO SCH (09:22)
[2021-05-31] MEDS: Melatonin 3 MG TAB PO SCH (20:20)
[2021-05-31] MEDS: Lantus 1000 UNITS/10 ML VIAL SC SCH (20:21)
[2021-06-01 04:08] LABS: #Lymphocytes 0.6 thou/uL (1.20-3.40); #Monocytes 0.4 thou/uL (0.11-0.59); #Neutrophils 9.3 thou/uL (1.40-6.50); %Basophils 0.1 % (0.0-1.0); %Eosinophils 0.1 % (0.0-10.0); %Lymphocytes 5.9 % (21.0-51.0); %Monocytes 3.6 % (0.0-10.0); %Neutrophils 90.3 % (42.0-75.0); Hemoglobin 16.4 g/dL (14.0-18.0); Mean Corpuscular HGB CONC 34.9 g/dL (32.0-36.0); Mean Corpuscular Hemoglobin 30.9 pg (27.0-31.0); Mean Corpuscular Volume 88.6 fL (78.0-98.0); Platelet Count 152 thou/uL (130-400); RBC Distribution Width 13.5 % (11.5-14.5); White Blood Cell (WBC) Count 10.3 thou/uL (4.8-10.8)
[2021-06-01 04:24] LABS: Anion Gap 11 mmol/L (10-20); BUN (Urea Nitrogen) 19 mg/dL (8.9-20.6); Calc. Creatinine Clearance 134 mL/min (70-130); Calcium 8.4 mg/dL (7.8-10.44); Carbon Dioxide 23 mmol/L (22-29); Chloride 102 mmol/L (98-107); Glucose 161 mg/dL (70-105); Potassium 3.9 mmol/L (3.5-5.1); Sodium 132 mmol/L (136-145)
[2021-06-01] MEDS: Mometasone 200 MCG/Formoterol 5 MCG 120 PUFF INHALER INH SCH ×2 (08:30→18:15)
[2021-06-01] MEDS ORDERED: Dexamethasone 6 MG in Sodium Chloride 0.9% 50 ML IVPB SCH (08:56)
[2021-06-01] MEDS: Cholecalciferol 1,000 UNITS (25 MCG) TAB PO SCH (09:15)
[2021-06-01] MEDS: Colchicine 0.6 MG TAB PO SCH ×2 (09:15→20:52)
[2021-06-01] MEDS: Zinc Sulfate 220 MG CAP PO SCH (09:15)
[2021-06-01] MEDS: Enoxaparin Sodium 40 MG/0.4 ML SYRINGE SC SCH ×2 (09:16→20:51)
[2021-06-01] MEDS: Ascorbic Acid 500 mg Chewable Tablet PO SCH (09:16)
[2021-06-01] MEDS: Dexamethasone 4 mg/ml Vial SLOW IVP SCH ×2 (09:21→20:52)
[2021-06-01] MEDS ORDERED: Furosemide 40 MG/4 ML VIAL SLOW IVP SCH (13:30)
[2021-06-01] MEDS: Melatonin 3 MG TAB PO SCH (20:52)
[2021-06-01] MEDS: Lantus 1000 UNITS/10 ML VIAL SC SCH (20:52)
[2021-06-02] MEDS: Mometasone 200 MCG/Formoterol 5 MCG 120 PUFF INHALER INH SCH ×2 (07:28→18:46)
[2021-06-02] MEDS ORDERED: Furosemide 40 MG/4 ML VIAL SLOW IVP SCH (09:00)
[2021-06-02] MEDS: Cholecalciferol 1,000 UNITS (25 MCG) TAB PO SCH (09:06)
[2021-06-02] MEDS: Colchicine 0.6 MG TAB PO SCH ×2 (09:07→21:33)
[2021-06-02] MEDS: Zinc Sulfate 220 MG CAP PO SCH (09:07)
[2021-06-02] MEDS: Ascorbic Acid 500 mg Chewable Tablet PO SCH (09:07)
[2021-06-02] MEDS: Dexamethasone 4 mg/ml Vial SLOW IVP SCH ×2 (09:08→21:32)
[2021-06-02] MEDS: Enoxaparin Sodium 60 MG/0.6 ML SYRINGE SC SCH ×2 (09:09→21:32)
[2021-06-02] MEDS: Enoxaparin Sodium 40 MG/0.4 ML SYRINGE SC SCH (09:10)
[2021-06-02 10:02] LABS: #Basophils 0.1 thou/uL (0.0-0.2); #Monocytes 0.7 thou/uL (0.11-0.59); #Neutrophils 10.5 thou/uL (1.40-6.50); %Basophils 0.6 % (0.0-1.0); %Eosinophils 0.2 % (0.0-10.0); %Lymphocytes 8.3 % (21.0-51.0); %Monocytes 5.6 % (0.0-10.0); %Neutrophils 85.3 % (42.0-75.0); Hemoglobin 17.5 g/dL (14.0-18.0); Mean Corpuscular HGB CONC 33.5 g/dL (32.0-36.0); Mean Corpuscular Hemoglobin 30.2 pg (27.0-31.0); Mean Corpuscular Volume 89.9 fL (78.0-98.0); Mean Platelet Volume 10.2 fL (7.4-10.4); Platelet Count 141 thou/uL (130-400); RBC Distribution Width 13.7 % (11.5-14.5); Red Blood Cell (RBC) Count 5.78 mill/uL (4.70-6.10); White Blood Cell (WBC) Count 12.3 thou/uL (4.8-10.8)
[2021-06-02 10:25] LABS: AST (SGOT) 61 U/L (5-34); Anion Gap 15 mmol/L (10-20); Bilirubin, Total 1.3 mg/dL (0.2-1.2); Calcium 8.7 mg/dL (7.8-10.44); Carbon Dioxide 18 mmol/L (22-29); Chloride 104 mmol/L (98-107); Potassium 4.3 mmol/L (3.5-5.1); Protein, Total 6.4 g/dL (6.0-8.3); Sodium 133 mmol/L (136-145)
[2021-06-02 11:07] LABS: Albumin 3.7 g/dL (3.5-5.0); Globulin 2.7 g/dL (2.4-3.5)
[2021-06-02 11:09] LABS: Glucose 130 mg/dL (70-105)
[2021-06-02 11:12] LABS: Alkaline Phosphatase 90 U/L (40-110); Calc. Creatinine Clearance 125 mL/min (70-130)
[2021-06-02 11:13] LABS: BUN (Urea Nitrogen) 19 mg/dL (8.9-20.6)
[2021-06-02 11:15] LABS: ALT (SGPT) 622 U/L (8-55)
[2021-06-02] MEDS: Lantus 1000 UNITS/10 ML VIAL SC SCH (21:31)
[2021-06-02] MEDS: Melatonin 3 MG TAB PO SCH (21:33)
[2021-06-03] MEDS: Mometasone 200 MCG/Formoterol 5 MCG 120 PUFF INHALER INH SCH ×2 (06:28→17:11)
[2021-06-03] MEDS: Enoxaparin Sodium 60 MG/0.6 ML SYRINGE SC SCH ×2 (10:08→20:31)
[2021-06-03] MEDS: Colchicine 0.6 MG TAB PO SCH ×2 (10:09→20:31)
[2021-06-03] MEDS: Dexamethasone 4 mg/ml Vial SLOW IVP SCH ×2 (10:09→20:30)
[2021-06-03] MEDS: Zinc Sulfate 220 MG CAP PO SCH (10:09)
[2021-06-03] MEDS: Cholecalciferol 1,000 UNITS (25 MCG) TAB PO SCH (10:09)
[2021-06-03] MEDS: Ascorbic Acid 500 mg Chewable Tablet PO SCH (10:10)
[2021-06-03] MEDS: Lantus 1000 UNITS/10 ML VIAL SC SCH (20:31)
[2021-06-03] MEDS: Melatonin 3 MG TAB PO SCH (20:31)
[2021-06-03] MEDS: HumaLOG 300 UNITS/3 ML VIAL SC PRN (20:32)
[2021-06-04] MEDS: Mometasone 200 MCG/Formoterol 5 MCG 120 PUFF INHALER INH SCH ×2 (05:38→17:53)
[2021-06-04] MEDS: Enoxaparin Sodium 60 MG/0.6 ML SYRINGE SC SCH ×2 (09:50→20:46)
[2021-06-04] MEDS: Cholecalciferol 1,000 UNITS (25 MCG) TAB PO SCH (09:50)
[2021-06-04] MEDS: Ascorbic Acid 500 mg Chewable Tablet PO SCH (09:50)
[2021-06-04] MEDS: Colchicine 0.6 MG TAB PO SCH ×2 (09:51→20:45)
[2021-06-04] MEDS: Zinc Sulfate 220 MG CAP PO SCH (09:51)
[2021-06-04] MEDS: Dexamethasone 4 mg/ml Vial SLOW IVP SCH ×2 (10:15→17:52)
[2021-06-04] MEDS ORDERED: methylPREDNISolone Sod Succ/PF 110 MG in Sodium Chloride 0.9% 250 ML 250 ML IVPB SCH (11:00)
[2021-06-04] MEDS: Melatonin 3 MG TAB PO SCH (20:45)
[2021-06-04] MEDS: HumaLOG 300 UNITS/3 ML VIAL SC PRN (20:46)
[2021-06-04] MEDS: Lantus 1000 UNITS/10 ML VIAL SC SCH (20:46)
[2021-06-05] MEDS: Dexamethasone 4 mg/ml Vial SLOW IVP SCH ×2 (04:24→09:12)
[2021-06-05] MEDS: Mometasone 200 MCG/Formoterol 5 MCG 120 PUFF INHALER INH SCH ×2 (05:57→18:10)
[2021-06-05] MEDS: HumaLOG 300 UNITS/3 ML VIAL SC PRN (06:02)
[2021-06-05] MEDS ORDERED: Ivermectin 3 MG TAB PO SCH (09:00)
[2021-06-05] MEDS: Zinc Sulfate 220 MG CAP PO SCH (09:10)
[2021-06-05] MEDS: Cholecalciferol 1,000 UNITS (25 MCG) TAB PO SCH (09:10)
[2021-06-05] MEDS: Ascorbic Acid 500 mg Chewable Tablet PO SCH (09:10)
[2021-06-05] MEDS: Enoxaparin Sodium 60 MG/0.6 ML SYRINGE SC SCH ×2 (09:11→20:36)
[2021-06-05] MEDS: Benzonatate 100 MG CAP PO PRN (09:11)
[2021-06-05] MEDS: Colchicine 0.6 MG TAB PO SCH ×2 (09:11→20:36)
[2021-06-05 14:48] LABS: #Lymphocytes 0.7 thou/uL (1.20-3.40); #Monocytes 0.2 thou/uL (0.11-0.59); #Neutrophils 7.9 thou/uL (1.40-6.50); %Basophils 0.1 % (0.0-1.0); %Eosinophils 0.1 % (0.0-10.0); %Neutrophils 89.8 % (42.0-75.0); Hemoglobin 17.2 g/dL (14.0-18.0); Mean Corpuscular HGB CONC 33.2 g/dL (32.0-36.0); Mean Corpuscular Hemoglobin 29.8 pg (27.0-31.0); Mean Corpuscular Volume 89.9 fL (78.0-98.0); Mean Platelet Volume 9.5 fL (7.4-10.4); Platelet Count 143 thou/uL (130-400); RBC Distribution Width 13.9 % (11.5-14.5); Red Blood Cell (RBC) Count 5.75 mill/uL (4.70-6.10); White Blood Cell (WBC) Count 8.8 thou/uL (4.8-10.8)
[2021-06-05] MEDS: Melatonin 3 MG TAB PO SCH (20:36)
[2021-06-05] MEDS: Lantus 1000 UNITS/10 ML VIAL SC SCH (20:38)
[2021-06-06] MEDS: Dexamethasone 4 mg/ml Vial SLOW IVP SCH ×2 (03:37→17:07)
[2021-06-06 04:45] LABS: Anion Gap 11 mmol/L (10-20); BUN (Urea Nitrogen) 18 mg/dL (8.9-20.6); Calc. Creatinine Clearance 0 mL/min (70-130); Calcium 8.7 mg/dL (7.8-10.44); Carbon Dioxide 21 mmol/L (22-29); Chloride 106 mmol/L (98-107); Glucose 109 mg/dL (70-105); Potassium 3.6 mmol/L (3.5-5.1); Sodium 134 mmol/L (136-145)
[2021-06-06] MEDS: Mometasone 200 MCG/Formoterol 5 MCG 120 PUFF INHALER INH SCH ×2 (07:32→18:30)
[2021-06-06] MEDS: Enoxaparin Sodium 60 MG/0.6 ML SYRINGE SC SCH ×2 (09:34→20:36)
[2021-06-06] MEDS: Zinc Sulfate 220 MG CAP PO SCH (09:35)
[2021-06-06] MEDS: Ascorbic Acid 500 mg Chewable Tablet PO SCH (09:35)
[2021-06-06] MEDS: Cholecalciferol 1,000 UNITS (25 MCG) TAB PO SCH (09:35)
[2021-06-06] MEDS: Colchicine 0.6 MG TAB PO SCH ×2 (09:35→20:35)
[2021-06-06] MEDS: HumaLOG 300 UNITS/3 ML VIAL SC PRN ×2 (12:08→20:50)
[2021-06-06] MEDS: Melatonin 3 MG TAB PO SCH (20:35)
[2021-06-06] MEDS: Lantus 1000 UNITS/10 ML VIAL SC SCH (20:50)
[2021-06-07] MEDS: Dexamethasone 4 mg/ml Vial SLOW IVP SCH ×2 (04:08→16:21)
[2021-06-07] MEDS: Enoxaparin Sodium 60 MG/0.6 ML SYRINGE SC SCH ×2 (08:51→20:25)
[2021-06-07] MEDS: Ascorbic Acid 500 mg Chewable Tablet PO SCH (08:52)
[2021-06-07] MEDS: Zinc Sulfate 220 MG CAP PO SCH (08:53)
[2021-06-07] MEDS: Cholecalciferol 1,000 UNITS (25 MCG) TAB PO SCH (08:53)
[2021-06-07] MEDS: Colchicine 0.6 MG TAB PO SCH (08:53)
[2021-06-07] MEDS: Mometasone 200 MCG/Formoterol 5 MCG 120 PUFF INHALER INH SCH ×2 (08:54→19:50)
[2021-06-07] MEDS: HumaLOG 300 UNITS/3 ML VIAL SC PRN ×2 (17:34→20:28)
[2021-06-07] MEDS: Melatonin 3 MG TAB PO SCH (20:26)
[2021-06-07] MEDS: Benzonatate 100 MG CAP PO PRN (20:26)
[2021-06-07] MEDS: Lantus 1000 UNITS/10 ML VIAL SC SCH (20:27)
[2021-06-08] MEDS: Dexamethasone 4 mg/ml Vial SLOW IVP SCH ×2 (04:10→15:03)
[2021-06-08] MEDS: Mometasone 200 MCG/Formoterol 5 MCG 120 PUFF INHALER INH SCH ×2 (07:22→18:52)
[2021-06-08] MEDS: Colchicine 0.6 MG TAB PO SCH (07:56)
[2021-06-08] MEDS: Zinc Sulfate 220 MG CAP PO SCH (07:56)
[2021-06-08] MEDS: Cholecalciferol 1,000 UNITS (25 MCG) TAB PO SCH (07:56)
[2021-06-08] MEDS: Ascorbic Acid 500 mg Chewable Tablet PO SCH (07:56)
[2021-06-08] MEDS: Enoxaparin Sodium 60 MG/0.6 ML SYRINGE SC SCH (07:57)
[2021-06-08 09:24] LABS: #Lymphocytes 0.6 thou/uL (1.20-3.40); #Monocytes 0.2 thou/uL (0.11-0.59); #Neutrophils 5.8 thou/uL (1.40-6.50); %Basophils 0.2 % (0.0-1.0); %Eosinophils 0.2 % (0.0-10.0); %Lymphocytes 9.5 % (21.0-51.0); %Monocytes 2.9 % (0.0-10.0); %Neutrophils 87.2 % (42.0-75.0); Hemoglobin 16.7 g/dL (14.0-18.0); Mean Corpuscular HGB CONC 32.3 g/dL (32.0-36.0); Mean Corpuscular Hemoglobin 29.4 pg (27.0-31.0); Mean Corpuscular Volume 90.9 fL (78.0-98.0); Mean Platelet Volume 9.1 fL (7.4-10.4); Platelet Count 157 thou/uL (130-400); RBC Distribution Width 14.3 % (11.5-14.5); White Blood Cell (WBC) Count 6.7 thou/uL (4.8-10.8)
[2021-06-08 09:36] LABS: Anion Gap 13 mmol/L (10-20); BUN (Urea Nitrogen) 15 mg/dL (8.9-20.6); Calc. Creatinine Clearance 129 mL/min (70-130); Calcium 9.2 mg/dL (7.8-10.44); Carbon Dioxide 24 mmol/L (22-29); Chloride 103 mmol/L (98-107); Glucose 129 mg/dL (70-105); Potassium 4.1 mmol/L (3.5-5.1); Sodium 136 mmol/L (136-145)
[2021-06-08] MEDS: Benzonatate 100 MG CAP PO PRN (11:28)
[2021-06-08] MEDS: HumaLOG 300 UNITS/3 ML VIAL SC PRN (13:08)
[2021-06-08] MEDS: Lantus 1000 UNITS/10 ML VIAL SC SCH (22:43)
[2021-06-08] MEDS: Apixaban 5 MG TAB PO SCH (22:43)
[2021-06-09] MEDS: Melatonin 3 MG TAB PO SCH ×2 (00:01→22:06)
[2021-06-09] MEDS: Dexamethasone 4 mg/ml Vial SLOW IVP SCH ×2 (06:12→15:14)
[2021-06-09] MEDS: Mometasone 200 MCG/Formoterol 5 MCG 120 PUFF INHALER INH SCH ×2 (06:58→18:36)
[2021-06-09] MEDS: Cholecalciferol 1,000 UNITS (25 MCG) TAB PO SCH (08:55)
[2021-06-09] MEDS: Apixaban 5 MG TAB PO SCH ×2 (08:56→22:07)
[2021-06-09] MEDS: Ascorbic Acid 500 mg Chewable Tablet PO SCH (08:56)
[2021-06-09] MEDS: Zinc Sulfate 220 MG CAP PO SCH (08:56)
[2021-06-09] MEDS: Colchicine 0.6 MG TAB PO SCH (08:56)
[2021-06-09] MEDS: HumaLOG 300 UNITS/3 ML VIAL SC PRN (15:16)
[2021-06-09] MEDS: Lantus 1000 UNITS/10 ML VIAL SC SCH (22:11)
[2021-06-10] MEDS: Dexamethasone 4 mg/ml Vial SLOW IVP SCH ×2 (06:43→18:01)
[2021-06-10] MEDS: Mometasone 200 MCG/Formoterol 5 MCG 120 PUFF INHALER INH SCH ×2 (07:23→18:04)
[2021-06-10] MEDS: Zinc Sulfate 220 MG CAP PO SCH (08:58)
[2021-06-10] MEDS: Cholecalciferol 1,000 UNITS (25 MCG) TAB PO SCH (08:58)
[2021-06-10] MEDS: Apixaban 5 MG TAB PO SCH ×2 (08:59→20:51)
[2021-06-10] MEDS: Ascorbic Acid 500 mg Chewable Tablet PO SCH (08:59)
[2021-06-10] MEDS: Colchicine 0.6 MG TAB PO SCH (08:59)
[2021-06-10] MEDS: Lantus 1000 UNITS/10 ML VIAL SC SCH (20:49)
[2021-06-10] MEDS: Melatonin 3 MG TAB PO SCH (20:51)
[2021-06-11] MEDS: Dexamethasone 4 mg/ml Vial SLOW IVP SCH (03:23)
[2021-06-11] MEDS: Mometasone 200 MCG/Formoterol 5 MCG 120 PUFF INHALER INH SCH ×2 (07:34→18:37)
[2021-06-11] MEDS: Ascorbic Acid 500 mg Chewable Tablet PO SCH (08:22)
[2021-06-11] MEDS: Colchicine 0.6 MG TAB PO SCH (08:22)
[2021-06-11] MEDS: Apixaban 5 MG TAB PO SCH ×2 (08:22→21:34)
[2021-06-11] MEDS: Cholecalciferol 1,000 UNITS (25 MCG) TAB PO SCH (08:22)
[2021-06-11] MEDS: Zinc Sulfate 220 MG CAP PO SCH (08:22)
[2021-06-11] MEDS: Lantus 1000 UNITS/10 ML VIAL SC SCH (21:35)
[2021-06-11] MEDS: Melatonin 3 MG TAB PO SCH (21:38)
[2021-06-12 05:09] VITALS: BMI 27.9
[2021-06-12] MEDS: Dexamethasone 4 MG TAB PO SCH (08:09)
[2021-06-12] MEDS: Cholecalciferol 1,000 UNITS (25 MCG) TAB PO SCH (08:10)
[2021-06-12] MEDS: Ascorbic Acid 500 mg Chewable Tablet PO SCH (08:10)
[2021-06-12] MEDS: Apixaban 5 MG TAB PO SCH ×2 (08:10→20:30)
[2021-06-12] MEDS: Zinc Sulfate 220 MG CAP PO SCH (08:10)
[2021-06-12] MEDS: Colchicine 0.6 MG TAB PO SCH (08:10)
[2021-06-12] MEDS: Mometasone 200 MCG/Formoterol 5 MCG 120 PUFF INHALER INH SCH ×2 (08:29→18:56)
[2021-06-12] MEDS ORDERED: Mag-Al 1200 mg/1200 mg/30 ML UDCUP PO PRN (10:31)
[2021-06-12] MEDS ORDERED: Mag-Al 1200 mg/1200 mg/30 ML UDCUP PO SCH (10:45)
[2021-06-12] MEDS: HumaLOG 300 UNITS/3 ML VIAL SC PRN ×2 (12:37→17:02)
[2021-06-12] MEDS: metFORMIN 500 MG TAB PO SCH (17:02)
[2021-06-12] MEDS: Melatonin 3 MG TAB PO SCH (20:32)
[2021-06-13] MEDS: Mometasone 200 MCG/Formoterol 5 MCG 120 PUFF INHALER INH SCH (07:07)
[2021-06-13 08:20] VITALS: BP 119/79; TEMP 97.9
[2021-06-13] MEDS: Dexamethasone 4 MG TAB PO SCH (09:35)
[2021-06-13] MEDS: Ascorbic Acid 500 mg Chewable Tablet PO SCH (09:36)
[2021-06-13] MEDS: Cholecalciferol 1,000 UNITS (25 MCG) TAB PO SCH (09:36)
[2021-06-13] MEDS: metFORMIN 500 MG TAB PO SCH ×2 (09:36→16:35)
[2021-06-13] MEDS: Apixaban 5 MG TAB PO SCH (09:36)
[2021-06-13] MEDS: Colchicine 0.6 MG TAB PO SCH (09:37)
[2021-06-13] MEDS: Zinc Sulfate 220 MG CAP PO SCH (09:37)
== END 2021-06-13 19:45 | disposition home or self-care (01) | DRG 871 ==
LOC: ERS 11:31 → IMCU/EMU 13:54 → T4-B 06-08 05:48
PROVIDERS: ADMIT Internal Medicine; ATTEND Family Medicine
PROC: 8E0ZXY6 Isolation (ICD-10-PCS; 2021-05-16)
PROC: 5A09357 Assistance with Respiratory Ventilation, Less than 24 Consecutive Hours, Continuous Positive Airway Pressure (ICD-10-PCS; 2021-05-16)
PROC: 5A0955A Assistance with Respiratory Ventilation, Greater than 96 Consecutive Hours, High Flow/Velocity Cannula (ICD-10-PCS; 2021-05-16)
PROC: XW033E5 Introduction of Remdesivir Anti-infective into Peripheral Vein, Percutaneous Approach, New Technology Group 5 (ICD-10-PCS; principal; 2021-05-17)
PROC: XW033H5 Introduction of Tocilizumab into Peripheral Vein, Percutaneous Approach, New Technology Group 5 (ICD-10-PCS; 2021-05-17)
DX: A41.89 Other specified sepsis (principal); U07.1 COVID-19; J12.82 Pneumonia due to coronavirus disease 2019; J80 Acute respiratory distress syndrome; E87.1 Hypo-osmolality and hyponatremia; E11.65 Type 2 diabetes mellitus with hyperglycemia; J98.2 Interstitial emphysema; Z79.899 Other long term (current) drug therapy; Z79.52 Long term (current) use of systemic steroids; Z79.2 Long term (current) use of antibiotics
CPT/HCPCS: 36415; 36416; 71045; 71275; 80048; 80053; 80074; 82728; 83036; 83605; 83880; 84145; 84484; 85025; 85379; 85384; 86140; 87040; 93005; 93970; 94660; 94760; 94799; 96365; 96375; C9113; J0456; J0696; J1100; J1650; J1815; J2920; J3262; J3490; J7050; J8540; Q9967; S0028; U0002; U0005